=== PATIENT | female | born 2005 | race Caucasian/White ===

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

== ENCOUNTER 2024-10-05 16:41 | Emergency (ER) | payer OTHER, SELFPAY ==
[2024-10-05 19:11] LABS: Urine Bacteria None Seen /HPF (<20); Urine Micro Reflex YN NO BILL MICROSCOPIC; Urine Mucus Slight /HPF (None Seen); Urine RBC <5 /HPF (None Seen); Urine WBC <5 /HPF (<5)
--- NOTE | 2024-10-05 19:16 | EDPHYS ---
Physician Documentation [facility] Name: Hank Maravilla Age: 19 yrs Sex: Female : 2005 Arrival Date: 10/05/2024 Time: 16:41 Bed DX3 Private MD: ED Physician Kana Corona HPI: 10/05 18:42 This 19 yrs old Female presents to ER via Ambulatory with complaints of Urinary Problem.sb4 18:42 Urinary frequency x 3 days. Was diagnosed with UTI urgent care 2 days ago, started on sb4 Bactrim. States that she has had 5 doses, reports worsening in symptoms. No fever, chills, nausea, vomiting, diarrhea. States she does get frequent UTIs, but they do usually respond to antibiotics. Does not think that she has had Bactrim before. Historical: - Allergies: 17:58 No Known Allergies; cm10 - PMHx: 17:58 None; cm10 - PSHx: 17:58 None; cm10 - Immunization history:: Adult Immunizations up to date. - Infectious Disease History:: Denies. - Social history:: Smoking status: Reported history of juuling and/or vaping. ROS: 18:42 Constitutional: Negative for fever, chills, and weight loss, sb4 18:42 : Positive for burning with urination, 18:42 All other systems are negative, Exam: 18:42 Constitutional: This is a well developed, well nourished patient who is awake, alert, sb4 and in no acute distress. Head/Face: Normocephalic, atraumatic. Eyes: Extra-ocular motions intact. Periorbital areas with no swelling, redness, or edema. ENT: Mucous membranes moist. Respiratory: No increased work of breathing, no retractions or nasal flaring. Back: No spinal tenderness. No costovertebral tenderness. Full range of motion. Skin: Warm, dry with normal turgor. Normal color with no rashes, no lesions, and no evidence of cellulitis. Vital Signs: 17:57 BP 118 / 77; Pulse 72; Resp 16; Temp 98.4; Pulse Ox 94% on R/A; Weight 68.04 kg; Height cm10 5 ft. 3 in. ; Pain 6/10; 17:57 Body Mass Index 26.57 (68.04 kg, 160.02 cm) cm10 17:57 Pain Scale: Adult cm10 MDM: 17:57 Medical Screening Exam initiated sb4 19:15 Data reviewed: vital signs, nurses notes, lab test result(s), and as a result, I will sb4 discharge patient. Counseling: I had a detailed discussion with the patient and/or guardian regarding the historical points, exam findings, and any diagnostic results supporting the discharge/admit diagnosis, lab results, the need for outpatient follow up, for definitive care, to return to the emergency department if symptoms worsen or persist or if there are any questions or concerns that arise at home. ED course: Lab was unable to run for UA because patient has been taking AZO. given her persistent symptoms, will add macrobid to her regimen. instructed to call urgent care tomorrow to check on urine culture results. patient understands. 10/05 17:59 Order name: Test, Urine; Complete Time: 19:11 sb4 10/05 19:06 Order name: Urine Microscopic Only; Complete Time: 19:11 EDMS Administered Medications: No medications were administered Disposition: 10/06 16:29 Co-signature as Attending Physician, Kana Corona MD I agree with the assessment and karel plan of care. Disposition Summary: 10/05/24 19:16 Discharge Ordered Notes: Location: Home sb4 Problem: new sb4 Symptoms: have improved sb4 Condition: Stable sb4 Diagnosis - Dysuria sb4 Followup: sb4 - With: Emergency Department - When: As needed - Reason: Fever > 102 F, Worsening of condition Discharge Instructions: - Discharge Summary Sheet sb4 - Dysuria sb4 Forms: - Antibiotic Education sb4 - Patient Portal Instructions sb4 - Leadership Thank You Letter sb4 Prescriptions: - ketorolac 10 mg Oral tablet - take 1 tablet ORAL route every 6 hours as needed for pain; maximum total sb4 duration of 5 days from all oral, intranasal, or parenteral formulations; 15 tablet; Refills: 0, Product Selection Permitted - Macrobid 100 mg Oral Capsule - take 1 capsule ORAL route every 12 hours for 7 days; 14 capsule; Refills: 0, sb4 Product Selection Permitted Signatures: Dispatcher [employer] Kana Pepper MD MD cha Brown, Sophia, PA-C PA-C sb4 Salma Bergeron RN RN cm10 Corrections: (The following items were deleted from the chart) 10/05 17:58 17:58 PMHx: Unable to Obtain; cm10 cm10 17:58 17:58 PSHx: Unable to Obtain; cm10 cm10 19:06 17:59 UA Rfx Janes Cult if indicated+U.LAB.BRZ ordered. EDMS EDMS
--- NOTE | 2024-10-05 19:16 | ER ---
Nurse's Notes [facility] Name: Hank Maravilla Age: 19 yrs Sex: Female : 2005 Arrival Date: 10/05/2024 Time: 16:41 Bed DX3 Private MD: Diagnosis: Dysuria Presentation: 10/05 17:57 Chief complaint: Patient states: Seen at urgent care on Wednesday for urinary frequency cm10 and put on bactrim. Pt states that she is not feeling better and is now having burning with urination. Coronavirus screen: Client denies travel out of the [place] in the last 14 days. Ebola Screen: Patient denies travel to an Ebola-affected area in the 21 days before illness onset. Initial Sepsis Screen: Does the patient meet any 2 criteria? No. Patient's initial sepsis screen is negative. Does the patient have a suspected source of infection? No. Patient's initial sepsis screen is negative. Risk Assessment: Do you want to hurt yourself or someone else? Patient reports no desire to harm self or others. Onset of symptoms was October 05, 2024. 17:57 Method Of Arrival: Ambulatory cm10 17:57 Acuity: LEEANN 4 cm10 Triage Assessment: 17:58 General: Appears in no apparent distress. comfortable, Behavior is calm, cooperative. cm10 Neuro: No deficits noted. Level of Consciousness is awake, alert, obeys commands, Oriented to person, place, time, situation, Appropriate for age. Respiratory: Airway is patent Respiratory effort is even, unlabored, Respiratory pattern is regular, symmetrical. : Reports burning with urination, urinary frequency. Historical: - Allergies: 17:58 No Known Allergies; cm10 - PMHx: 17:58 None; cm10 - PSHx: 17:58 None; cm10 - Immunization history:: Adult Immunizations up to date. - Infectious Disease History:: Denies. - Social history:: Smoking status: Reported history of juuling and/or vaping. Screenin:00 [facility] ED Fall Risk Assessment (Adult) History of falling in the last 3 months, kb3 including since admission No falls in past 3 months (0 pts) Confusion or Disorientation No (0 pts) Intoxicated or Sedated No (0 pts) Impaired Gait No (0 pts) Mobility Assist Device Used No (0 pt) Altered Elimination No (0 pt) Score/Fall Risk Level 0 - 2 = Low Risk Oriented to surroundings. Abuse screen: Denies threats or abuse. Denies injuries from another. Nutritional screening: No deficits noted. Tuberculosis screening: No symptoms or risk factors identified. Assessment: 19:00 General: Appears in no apparent distress. comfortable. Pain: Complains of pain in kb3 pelvis Pain does not radiate. Pain currently is 0 out of 10 on a pain scale. Quality of pain is described as burning, Pain began gradually, With urination. Vital Signs: 17:57 BP 118 / 77; Pulse 72; Resp 16; Temp 98.4; Pulse Ox 94% on R/A; Weight 68.04 kg; Height cm10 5 ft. 3 in. ; Pain 6/10; 17:57 Body Mass Index 26.57 (68.04 kg, 160.02 cm) cm10 17:57 Pain Scale: Adult cm10 ED Course: 17:15 Patient arrived in ED. cj3 17:21 [facility] sb[facility] 17:21 Kana Corona MD is Attending Physician. sb4 17:58 Triage completed. cm10 17:59 Arm band placed on right wrist. Patient placed in waiting room, Patient notified of cm10 wait time. 19:00 Patient has correct armband on for positive identification. Provided Education on: Plan kb3 of care, medications, follow up. 19:00 Test, Urine Sent. cc6 19:00 No provider procedures requiring assistance completed. Patient did not have IV access kb3 during this emergency room visit. Administered Medications: No medications were administered Medication: 19:00 VIS not applicable for this client. kb3 Outcome: 19:16 Discharge ordered by . sb4 19:25 Discharged to home ambulatory, kb3 19:25 Condition: stable kb3 19:25 Discharge instructions given to patient, Instructed on discharge instructions, Demonstrated understanding of instructions, follow-up care, medications, Prescriptions given X 2, 19:33 Patient left the ED. kb3 Signatures: Nancy Prince, RN RN kb3 Pati Davies PA-C PA-C sb4 Salma Bergeron RN RN cm10 Mary Kate Chiu cc6 Jackie Paniagua cj3 Corrections: (The following items were deleted from the chart) 17:58 17:58 PMHx: Unable to Obtain; cm10 cm10 17:58 17:58 PSHx: Unable to Obtain; cm10 cm10 19:06 19:00 UA Rfx Janes Cult if indicated+U.LAB.BRZ drawn and sent. cc6 EDMS
[2024-10-05 19:39] VITALS: BP 118/77; TEMP 98.4; O2SAT 94
== END 2024-10-05 19:33 | disposition home or self-care (01) ==
LOC: ER 16:41
DX: R30.0 Dysuria (principal)
CPT/HCPCS: 81015; 81025; 99283